=== PATIENT | female | born 1955 | race Caucasian/White ===

== ENCOUNTER 2018-10-12 05:25 | Emergency (ER) | payer SELFPAY ==
[2018-10-12] MEDS ORDERED: IPRATROPIUM/ALBUTEROL (0.5MG/3MG) NEB INH ONE (05:36)
--- NOTE | 2018-10-12 05:42 | Emergency Department Record ---
History of Present Illness - General Chief Complaint: Shortness of breath Stated Complaint: SOB Time Seen by Provider: 10/12/18 05:32 Source: Patient Mode of Arrival: Ambulatory Limitations: No limitations - History of Present Illness Initial Comments: 62 yo female presents to ED for evaluation of chest pain with deep inspiration that began this morning. Patient reports that she was diagnosed with influenza yesterday in [facility], reports that her symptoms have worsened since that time. Patient denies history of COPD or Asthma, but reports long-stadning history of smoking (35 years, quit). Patient denies history of CAD. MD Complaint: Pain with inspiration, Shortness of breath Onset/Timin -: Days(s) Severity: Moderate Consistency: Constant Improves With: Nothing Worsens With: Other (deep breaths) Associated Symptoms: Denies other symptoms Treatments Prior to Arrival: None - Related Data Home Oxygen Therapy: No Home Medications Medication Instructions Recorded Confirmed Last Taken Mirtazapine [Remeron] 30 mg PO DAILY 10/12/18 10/12/18 10/11/18 Multivitamin [Multiple Vitamins] 1 tab PO DAILY 10/12/18 10/12/18 10/11/18 Previous Rx's Medication Instructions Recorded Albuterol Sulfate [Proair Hfa] 1 - 2 puff IH .EVERY 4-6 HOURS PRN 10/12/18 #1 inhaler Azithromycin [Zithromax] 250 mg PO DAILY #4 tab 10/12/18 Prednisone [Prednisone 20Mg] 20 mg PO TID #12 tab 10/12/18 Allergies Allergy/AdvReac Type Severity Reaction Status Date / Time No Known Drug Allergies Allergy Verified 10/12/18 05:53 Review of Systems Constitutional: Reports: Malaise. Denies: Chills, Fever, Night sweats Eyes: Denies: Eye discharge, Eye pain ENT: Denies: Congestion, Ear pain, Epistaxis Respiratory: Reports: Cough, Dyspnea Cardiovascular: Reports: Chest pain, Dyspnea on exertion. Denies: Palpitations , Syncope Endocrine: Denies: Fatigue, Heat or cold intolerance Gastrointestinal: Denies: Abdominal pain, Nausea, Vomiting Genitourinary: Denies: Incontinence, Retention Musculoskeletal: Denies: Arthralgia, Back pain Skin: Denies: Bruising, Change in color Neurological: Denies: Abnormal gait, Confusion, Headache, Seizure Psychiatric: Denies: Anxiety Hematological/Lymphatic: Denies: Anemia, Blood Clots Past Medical History - SOCIAL HISTORY Smoking Status: Never smoker - RESPIRATORY Hx Respiratory Disorders: No - CARDIOVASCULAR Hx Cardio Disorders: No - NEURO Hx Neuro Disorders: No - GI Hx GI Disorders: No - Hx Genitourinary Disorders: No - ENDOCRINE Hx Endocrine Disorders: No - MUSCULOSKELETAL Hx Musculoskeletal Disorders: No - PSYCH Hx Psych Problems: No - HEMATOLOGY/ONCOLOGY Hx Hematology/Oncology Disorders: No Physical Exam - General General Appearance: Alert, Oriented x3, Cooperative, Moderate distress Limitations: No limitations - Head Head exam: Atraumatic, Normocephalic, Normal inspection Head exam detail: negative: Abrasion, Contusion, Carter's sign, General tenderness, Hematoma, Laceration - Eye Eye exam: Normal appearance. negative: Conjunctival injection, Periorbital swelling, Periorbital tenderness, Scleral icterus - ENT Ear exam: negative: Auricular hematoma, Auricular trauma Nasal Exam: negative: Active bleeding, Discharge, Dried blood, Foreign body Mouth exam: negative: Drooling, Laceration, Muffled voice, Tongue elevation - Neck Neck exam: Normal inspection. negative: Meningismus, Tenderness - Respiratory Respiratory exam: Decreased breath sounds. negative: Prolonged expiratory, Rales, Respiratory distress, Rhonchi, Stridor - Cardiovascular Cardiovascular Exam: Regular rate, Normal rhythm, Normal heart sounds - GI/Abdominal GI/Abdominal exam: Soft. negative: Rebound, Rigid, Tenderness - Rectal Rectal exam: Deferred - exam: Deferred - Extremities Extremities exam: Normal inspection. negative: Pedal edema, Tenderness - Back Back exam: Denies: CVA tenderness (R), CVA tenderness (L) - Neurological Neurological exam: Alert, Normal gait, Oriented X3 - Psychiatric Psychiatric exam: Normal affect, Normal mood - Skin Skin exam: Normal color. negative: Abrasion Type of lesion: negative: abrasion Course Vital Signs 10/12/18 05:29 Temperature 98.1 F Pulse Rate [ 104 H Pulse Ox Probe] Respiratory 28 H Rate Blood Pressure 162/102 [Left Arm] Pulse Ox 94 L - Reevaluation(s) Reevaluation #1: 10/12/18 05:41 EKG: Sinus tachycardia 102 Normal axis, normal intervals Borderline ST depression V4-V6 Reevaluation #2: 10/12/18 06:16 Laboratory studies were reviewed and are grossly unremarkable for an acute process. CXR: Probable infiltrate left mid-lung Patient reassessed, reports improvement in her breathing following duoneb. Will admit for probable COPD exacerbation and CAP. Reevaluation #3: 10/12/18 06:21 Following discussion with the patient regarding admission, patient reports that they want to leave AMA at this time due to the cost of admission. Risks of , permanent impairment, or worsening of their current condition were discussed as well as the benefit of admission for further evaluation of her presenting symptoms. Patient verbalizes understanding of all risks and benefits , desires to leave AMA despite these risks. Based on my examination, the patient is alert, oriented, and answers all questions appropriately. Patient appears to have the capacity to make rational decisions based on my examination. Patient was encouraged to return to the ED immediately if they change their mind about treatment and want to be re-evaluated. Will discharge home on Zithromax, Prednisone, and Albuterol as directed. Medical Decision Making - Lab Data Result diagrams: 10/12/18 05:35 10/12/18 05:35 Disposition Disposition: Discharge Clinical Impression: Bronchospasm, Influenza A Disposition: Against Medical Advice Condition: (2) Stable Instructions: Bronchospasm (ED) Additional Instructions: Return to ED if your symptoms worsen or if you have any concerns. Prednisone, albuterol, and zithromax as directed. Follow-up with your family doctor in 1-3 days as directed. Prescriptions: Albuterol Sulfate [Proair Hfa] 1 - 2 puff IH .EVERY 4-6 HOURS PRN #1 inhaler PRN Reason: Bronchospasm Azithromycin [Zithromax] 250 mg PO DAILY #4 tab Prednisone [Prednisone 20Mg] 20 mg PO TID #12 tab Forms: Patient Portal Access Time of Disposition: 06:25 Quality - Quality Measures Quality Measures: N/A - Blood Pressure Screening Does Patient Have Any of the Following: Active Dx of HTN Blood Pressure Classification: Hypertensive Reading Systolic Measurement: 166 Diastolic Measurement: 102 Screening for High Blood Pressure: Patient Exclusion, Hx of HTN [[id number]]
[2018-10-12 05:45] LABS: HEMATOCRIT 42.7 % (35.0-47.0); MEAN CORPUSCULAR HEMOGLOBIN 32.8 pg (27-33); MEAN CORPUSCULAR HGB CONC 32.8 g/dl (32-36); MEAN PLATELET VOLUME 9.9 fl (7.4-10.4); PLATELET COUNT 230 K/uL (130-400); RED BLOOD COUNT 4.27 M/uL (3.80-5.40); RED CELL DISTRIBUTION WIDTH 13.4 % (11.5-14.5); WHITE BLOOD COUNT W/O DIFF 6.8 K/uL (4.2-12.2)
[2018-10-12] MEDS ORDERED: 0.9 % SODIUM CHLORIDE 1000ML 1,000 ML IV SCH (05:45)
[2018-10-12] MEDS ORDERED: METHYLPREDNISOLONE PF 125MG/VIAL IVP SCH (05:45)
[2018-10-12 05:55] LABS: BILIRUBIN,TOTAL < 0.20 mg/dL (0.2-1.0); BLOOD UREA NITROGEN 14 mg/dL (8-23); CREATININE 0.7 mg/dL (0.5-0.9); EST GLOMERULAR FILTRATION RATE > 60 mL/min; TOTAL PROTEIN 7.6 g/dL (6.6-8.7)
[2018-10-12 05:57] LABS: GLUCOSE,RANDOM 134 mg/dL (74-109)
[2018-10-12 06:00] LABS: ALB/GLOB RATIO 1.1 (1.1-1.8); ALBUMIN 3.9 g/dL (4.0-5.0); ALKALINE PHOSPHATASE 79 U/L (45-87); ALT/SGPT 27 U/L (<33); AST/SGOT 35 U/L (10.0-35.0)
[2018-10-12] MEDS ORDERED: AZITHROMYCIN 500 MG TABLET PO ONE (06:27)
--- NOTE | 2018-10-14 10:27 | RADIOLOGY REPORT ---
EXAM: CHEST, TWO VIEWS HISTORY: COUGH AND SHORTNESS OF BREATH. TECHNIQUE: Two views of the chest were obtained. Comparison: None. FINDINGS: The cardiac silhouette is within normal size limits. Mild opacities in the lateral right lung base, primarily linear in appearance. No other focal pulmonary consolidation. No pleural effusion or pneumothorax. IMPRESSION: LATERAL RIGHT LUNG BASE OPACITIES, APPEARANCE MOST SUGGESTIVE OF ATELECTASIS ALTHOUGH ACUTE AIR SPACE PROCESS NOT EXCLUDED IN THE APPROPRIATE CLINICAL SETTING. JOB NUMBER: [id number] [facility]
== END 2018-10-12 06:46 | disposition left against medical advice (07) ==
LOC: ER 05:25
DX: J10.1 Influenza due to other identified influenza virus with other respiratory manifestations (principal); J98.01 Acute bronchospasm; Z87.891 Personal history of nicotine dependence
CPT/HCPCS: 71046; 80053; 84484; 85027; 93005; 93010; 94640; 96374; 99284; J2930; J7030